=== PATIENT | male | born 1955 | race Two or more races ===

== ENCOUNTER 2016-11-30 08:28 | Emergency (ER) | payer OTHER | END 2016-11-30 09:17 | disposition home or self-care (01) | LOC: ED 08:28 | DX: T50.905A Adverse effect of unspecified drugs, medicaments and biological substances, initial encounter (principal); N40.0 Benign prostatic hyperplasia without lower urinary tract symptoms; Z79.899 Other long term (current) drug therapy; Z88.0 Allergy status to penicillin ==